=== PATIENT | male | born 1970 | race Caucasian/White ===

== ENCOUNTER 2019-02-28 09:05 | Emergency (ER) | payer BC, OTHER ==
[2019-02-28] MEDS ORDERED: Orphenadrine 100 MG Tab.ER PO STA (09:45)
--- NOTE | 2019-02-28 09:46 | EDM.PDOC ---
ED HPI GENERAL MEDICAL PROBLEM - General Chief Complaint: Respiratory Problem Stated Complaint: CHEST PAIN/SOB - COUGHING BLOOD X 2 DAYS Time Seen by Provider: 02/28/19 09:15 Source of Information: Reports: Patient, RN Notes Reviewed History Limitations: Reports: No Limitations - History of Present Illness INITIAL COMMENTS - FREE TEXT/NARRATIVE: The patient states that he has been experiencing pain felt in his lower sternum and between his scapulae since August 2018, but worse for the past 3 days. The pain is only present, in both locations, if he inhales. He has no pain if he either stops breathing or exhales. The patient is unable to describe the character of the pain, only that it is severe. The pain does not radiate anywhere else. The patient denies dyspnea, per se, but states that because of the pain, "I can't breathe - having a hard time breathing". The patient also reports "coughing up blood" 2 days ago. When asked to clarify, he describes some bloody phlegm. He reports having a sore throat today. He reports 3 weeks of night sweats, but no fever. He also reports having no energy for the past 3- 4 weeks. Back in August 2018, the patient states that he went to the walk-in clinic, but that no blood work or chest x-ray was performed. He was nevertheless diagnosed with pneumonia, and prescribed a Z-Jonh and inhalers, although no space chamber. He states that he has continued to use the inhaler, without improvement of his symptoms. When I asked the patient to mimic his inhaler technique, it was poor. The patient states that he took some Advil and beer to "take the edge off" last night. The patient states that he takes 5 tablets of ibuprofen (1000 mg) twice a day (2g/day), and that he has been doing so for the past 10 years. He denies taking any other medications. Here in the ED, the patient is found to be mildly tachycardic, with an oxygen saturation of 95% on room air. The patient does not have a PCP. Middle Chest Pain Score (Numeric/FACES): 4 - Related Data Allergies Allergy/AdvReac Type Severity Reaction Status Date / Time No Known Allergies Allergy Verified 02/28/19 09:14 Home Meds: Home Meds Albuterol Sulfate [Albuterol Sulfate Hfa] 1 inh INH DAILY PRN 02/28/19 [History] Orphenadrine [Norflex] 1 tab PO Q12H PRN #20 tab.er 02/28/19 [Rx] Past Medical History Musculoskeletal History: Reports: Fracture (Bilateral knees. Left elbow.) Endocrine/Metabolic History: Reports: Obesity/BMI 30+ - Past Surgical History HEENT Surgical History: Reports: Oral Surgery (wisdom teeth extraction) GI Surgical History: Reports: Hernia Repair/Other (periumbilical), Other (See Below) (Splenic laceration repair) Musculoskeletal Surgical History: Reports: Arthroscopic Knee (bilateral), ORIF ( left elbow) Social & Family History - Tobacco Use Smoking Status *Q: Never Smoker Second Hand Smoke Exposure: No - Caffeine Use Caffeine Use: Reports: Coffee, Soda - Alcohol Use Alcohol Use History: Yes Alcohol Use Frequency: Socially (to excess on occasion) - Recreational Drug Use Recreational Drug Use: No - Living Situation & Occupation Living situation: Reports: Single, Alone 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 ED EXAM, GENERAL - Physical Exam Exam: See Below Exam Limited By: No Limitations General Appearance: Alert, WD/WN, No Apparent Distress Eye Exam: Bilateral Eye: EOMI, Normal Inspection Ears: Normal External Exam, Normal Canal, Hearing Grossly Normal, Normal TMs Nose: Normal Inspection, Normal Mucosa, No Blood Throat/Mouth: Normal Inspection, Normal Lips, Normal Teeth, Normal Gums, Normal Voice, No Airway Compromise, Other (Mild posterior oropharyngeal erythema. No swelling.) Head: Atraumatic, Normocephalic Neck: Normal Inspection, Supple, Non-Tender, Full Range of Motion. No: Lymphadenopathy (L), Lymphadenopathy (R) Respiratory/Chest: No Respiratory Distress, Lungs Clear, Normal Breath Sounds, No Accessory Muscle Use, Other (Reproducible tenderness to palpation of the inferior sternum and medial aspect of the left pectoralis muscle. This same pain is reproduced by having the patient pressed his hands in front of his chest , or by crossing his left arm across his chest. The pain between the scapulae is also reproducible with direct palpation over the lower thoracic spine.). No : Decreased Breath Sounds, Crackles, Rhonchi, Wheezing, Prolonged Expiration Cardiovascular: Normal Peripheral Pulses, Regular Rate, Rhythm, No Gallop, No JVD, No Murmur, No Rub Peripheral Pulses: 4+: Radial (L), Radial (R) GI/Abdominal: Normal Bowel Sounds, Soft, Non-Tender, No Organomegaly, No Distention, No Abnormal Bruit, No Mass, Other (Obese) (Male) Exam: Deferred Rectal (Males) Exam: Deferred Back Exam: Normal Inspection, Full Range of Motion, NT Extremities: Normal Inspection, Normal Range of Motion, Normal Capillary Refill Neurological: Alert, Oriented, Normal Cognition, No Motor/Sensory Deficits Psychiatric: Normal Affect Skin Exam: Warm, Dry, Intact, Normal Color, No Rash EKG INTERPRETATION EKG Date: 02/28/19 Time: 09:11 Rhythm: Other (Sinus tachycardia) Rate (Beats/Min): 101 New Site: Normal P-Wave: Present QRS: Normal ST-T: Normal QT: Normal Comparison: NA - No Prior EKG Course - Vital Signs Last Recorded V/S: Last Vital Signs Temp 36.9 C 02/28/19 09:11 Pulse 102 H 02/28/19 09:11 Resp 18 02/28/19 09:11 BP 132/82 02/28/19 09:11 Pulse Ox 95 02/28/19 09:11 - Orders/Labs/Meds Labs: Laboratory Tests 02/28/19 02/28/19 02/28/19 Range/Units 10:06 10:06 10:06 WBC 9.44 H (4.23-9.07) K/mm3 RBC 4.94 (4.63-6.08) M/mm3 Hgb 14.7 (13.7-17.5) gm/L Hct 43.2 (40.1-51.0) % MCV 87.4 (79.0-92.2) fl MCH 29.8 (25.7-32.2) pg MCHC 34.0 (32.2-35.5) g/dl RDW Std Deviation 41.8 (35.1-43.9) fL Plt Count 289 (163-337) K/mm3 MPV 8.9 L (9.4-12.3) fl Neutrophils % (Manual) 57 (40-60) % Band Neutrophils % 0 (0-10) % Lymphocytes % (Manual) 32 (20-40) % Atypical Lymphs % 0 % Monocytes % (Manual) 8 (2-10) % Eosinophils % (Manual) 2 (0.8-7.0) % Basophils % (Manual) 1 (0.2-1.2) Platelet Estimate Adequate RBC Morph Comment Normal APTT 28 (24-31) SECONDS D-Dimer, Quantitative 0.34 (0.19-0.50) mg/L Sodium 143 (136-145) mEq/L Potassium 3.8 (3.5-5.1) mEq/L Chloride 108 H (98-107) mEq/L Carbon Dioxide 23 (21-32) mEq/L Anion Gap 15.8 H (5-15) BUN 16 (7-18) mg/dL Creatinine 1.2 (0.7-1.3) mg/dL Est Cr Clr Drug Dosing 81.05 mL/min Estimated GFR (MDRD) > 60 (>60) mL/min BUN/Creatinine Ratio 13.3 L (14-18) Glucose 127 H (74-106) mg/dL Calcium 8.1 L (8.5-10.1) mg/dL Total Bilirubin 0.3 (0.2-1.0) mg/dL AST 31 (15-37) U/L ALT 53 (16-63) U/L Alkaline Phosphatase 60 (46-116) U/L Troponin I < 0.017 (0.00-0.056) ng/mL C-Reactive Protein (<1.0) mg/dL Total Protein 7.4 (6.4-8.2) g/dl Albumin 3.4 (3.4-5.0) g/dl Globulin 4.0 gm/dL Albumin/Globulin Ratio 0.9 L (1-2) 02/28/19 Range/Units 10:06 WBC (4.23-9.07) K/mm3 RBC (4.63-6.08) M/mm3 Hgb (13.7-17.5) gm/L Hct (40.1-51.0) % MCV (79.0-92.2) fl MCH (25.7-32.2) pg MCHC (32.2-35.5) g/dl RDW Std Deviation (35.1-43.9) fL Plt Count (163-337) K/mm3 MPV (9.4-12.3) fl Neutrophils % (Manual) (40-60) % Band Neutrophils % (0-10) % Lymphocytes % (Manual) (20-40) % Atypical Lymphs % % Monocytes % (Manual) (2-10) % Eosinophils % (Manual) (0.8-7.0) % Basophils % (Manual) (0.2-1.2) Platelet Estimate RBC Morph Comment APTT (24-31) SECONDS D-Dimer, Quantitative (0.19-0.50) mg/L Sodium (136-145) mEq/L Potassium (3.5-5.1) mEq/L Chloride (98-107) mEq/L Carbon Dioxide (21-32) mEq/L Anion Gap (5-15) BUN (7-18) mg/dL Creatinine (0.7-1.3) mg/dL Est Cr Clr Drug Dosing mL/min Estimated GFR (MDRD) (>60) mL/min BUN/Creatinine Ratio (14-18) Glucose (74-106) mg/dL Calcium (8.5-10.1) mg/dL Total Bilirubin (0.2-1.0) mg/dL AST (15-37) U/L ALT (16-63) U/L Alkaline Phosphatase (46-116) U/L Troponin I (0.00-0.056) ng/mL C-Reactive Protein 5.7 H* (<1.0) mg/dL Total Protein (6.4-8.2) g/dl Albumin (3.4-5.0) g/dl Globulin gm/dL Albumin/Globulin Ratio (1-2) Meds: Medications Discontinued Medications Generic Name Dose Route Start Last Admin Trade Name Freq PRN Reason Stop Dose Admin Orphenadrine Citrate 100 mg 02/28/19 09:45 02/28/19 09:59 Norflex PO 02/28/19 09:46 100 mg ONETIME STA Administration - Re-Assessments/Exams Free Text/Narrative Re-Assessment/Exam: 02/28/19 09:44 The patient's chest pain and mid-back pain are musculoskeletal in etiology, as they are reproducible with palpation and flexion of the muscles. I have ordered Norflex. In the meantime, however, the patient may also have an underlying pulmonary issue, therefore I have ordered blood work and a chest x-ray. In addition, because of the patient's sore throat and bloody phlegm, I have ordered a rapid strep test. 02/28/19 10:12 2-view chest radiograph reviewed. The cardiac silhouette is within normal limits. No pulmonary vascular congestion. No pleural effusions. No focal infiltrate. No pneumothorax. Several sub-centimeter nodules noted bilaterally. Formal read per the Radiologist pending. Due to the pulmonary nodules, I will add a CRP. 02/28/19 11:27 Test results discussed with the patient. His CBC is remarkable for WBC count slightly elevated at 9.44, but with 0% bandemia. The remainder of his CBC is unremarkable. His CMP is remarkable for blood glucose modestly elevated at 127. The remainder of his CMP is unremarkable. His troponin is undetectably low. His D-dimer is within normal limits. His CRP is modestly elevated at 5.7. His rapid strep returned negative. As above, the patient's chest and back pain appears to be musculoskeletal in etiology, and for that, he has been started on Norflex. I will prescribe additional, and write a note for him to be off work for a couple of days. The patient had stated that he takes 5 tablets (1000 mg) of ibuprofen twice a day, for the past 10 years. Such high doses and prolonged use of ibuprofen have been shown to increase the risk for the development of coronary artery disease, therefore, despite his aches and pains, I will have to recommend that he discontinue its use. He may take Tylenol at a reasonable dose. In most patients who report coughing up blood, the blood comes from friable mucous membranes in the posterior oropharynx, which may be the cause in this case, however, I am concerned by his abnormal chest x-ray, his generalized aches and pains, night sweats, and fatigue. It is possible that the patient may have vasculitis, such as Brittney's or sarcoidosis. Further workup is required, in my opinion. I will therefore refer him to the clinic, where a dedicated CT scan of the chest with IV contrast, along with blood work, can be ordered. Departure - Departure Time of Disposition: 11:31 Disposition: Home, Self-Care 01 Condition: Good Clinical Impression: Musculoskeletal chest pain, Musculoskeletal back pain, Cough - Discharge Information *PRESCRIPTION DRUG MONITORING PROGRAM REVIEWED*: Not Applicable *COPY OF PRESCRIPTION DRUG MONITORING REPORT IN PATIENT CARMEN: Not Applicable Prescriptions: Orphenadrine [Norflex] 1 tab PO Q12H PRN #20 tab.er PRN Reason: Muscle Spasm Instructions: Cough, Adult, [id number], Nonspecific Chest Pain, [id number] Referrals: Seng Mota MD [Physician] - Forms: ED Department Discharge, ED Return to Work/School Form Additional Instructions: You were seen in the emergency room for chest pain and back pain with breathing , coughing up some bloody phlegm, a sore throat, night sweats, and fatigue. Workup in the ER included blood work, a rapid strep test, a chest x-ray, and an ECG. Your chest x-ray showed several small pulmonary nodules. The remainder of your workup was, for the most part, unremarkable. You do not have pneumonia. You do not have a blood clot in your lungs. You have not suffered a heart attack. He did not have strep throat. The cause of your chest and back pain is due to a muscle spasm. You have been started on the muscle relaxant Norflex. A prescription for Norflex has been sent to the [facility], located in the [facility] [facility]. Take one tablet of Norflex every 12 hours, starting this evening, 02/28/2019, as prescribed. As discussed, taking large doses of NSAIDs, such as ibuprofen, can be bad for your heart. We recommend that you stop taking this medicine immediately. You may take [id number] Tylenol, up to 1 g (two 500 mg tablets) every 6 hours, as needed for discomfort. We recommend that you follow-up with Dr. Seng Fields in the clinic at the next available appointment, for further evaluation of your chest, that will likely include a CT scan of your chest with IV contrast, along with additional blood tests, in order to make sure that you do not have conditions such as vasculitis or sarcoidosis. A note for work has been provided to you. If any other problems, please do not hesitate to return to the ER.
--- NOTE | 2019-02-28 12:53 | CR ---
Chest: Two views of the chest were obtained. Comparison: No prior chest x-ray. Heart size is normal. Mild tortuosity of the thoracic aorta is seen. No acute parenchymal change is appreciated within the lungs. Minimal scoliosis is noted within the spine. Impression: 1. Nothing acute is appreciated on two-view chest x-ray. Diagnostic code #2
== END 2019-02-28 11:54 | disposition home or self-care (01) ==
LOC: JD.ED 09:05
DX: R07.89 Other chest pain (principal); M54.9 Dorsalgia, unspecified; R05 Cough; Z79.899 Other long term (current) drug therapy
CPT/HCPCS: 36415; 71046; 80053; 84484; 85007; 85027; 85379; 85730; 86140; 87077; 87081; 87430; 93005; 99285; A9270; 93010; 99284

== ENCOUNTER 2021-09-26 17:16 | Emergency (ER) | payer BC ==
--- NOTE | 2021-09-26 18:24 | EDM.PDOC ---
<AbhinavNicole - Last Filed: 09/26/21 19:06> ED HPI GENERAL MEDICAL PROBLEM - General Chief Complaint: Abdominal Pain Stated Complaint: ABDOMINAL PAIN Time Seen by Provider: 09/26/21 17:40 Source of Information: Reports: Patient, Significant Other (- Karen) History Limitations: Reports: No Limitations - History of Present Illness INITIAL COMMENTS - FREE TEXT/NARRATIVE: Mr. Red Enriquez (Tim) is a pleasant 51 [id number] who presents for evaluation of abdominal pain in the epigastric area that started 3 days ago. He rates the pain a 6/10, describing it as "constant" and "severe pressure. He tried a soft foods diet, but did not notice any relief. He was able to eat a small amount of yogurt this afternoon and sip on a Poweraid. Nothing, including position changes, makes it worse. He had diarrhea 4 days ago, that lasted 3 day that resolved spontaneously. He had a small bowel movement this morning. He is passing a little gas. Associated symptoms include extreme tiredness x3 days, chills x3 days, sweats xonce, one episode of emesis this morning. He denies headache, cough, fever, chest pain, sob. He had a hernia repair in 2008. Upper Mid-Anterior Abdomen Pain Score (Numeric/FACES): 6 - Related Data Allergies Allergy/AdvReac Type Severity Reaction Status Date / Time No Known Allergies Allergy Verified 09/26/21 17:38 Home Meds: Home Meds Albuterol Sulfate [Albuterol Sulfate Hfa] 1 inh INH DAILY PRN 02/28/19 [History] Rosuvastatin [Crestor] 10 mg PO DAILY 09/26/21 [History] hydroCHLOROthiazide [Hydrochlorothiazide] 25 mg PO DAILY 09/26/21 [History] lisinopriL [Lisinopril] 10 mg PO DAILY 09/26/21 [History] Past Medical History Cardiovascular History: Reports: High Cholesterol, Hypertension Respiratory History: Reports: Asthma, Pneumonia, Recurrent Gastrointestinal History: Reports: GERD Musculoskeletal History: Reports: Fracture Endocrine/Metabolic History: Reports: Obesity/BMI 30+ - Infectious Disease History Infectious Disease History: Reports: Chicken Pox - Past Surgical History HEENT Surgical History: Reports: Oral Surgery GI Surgical History: Reports: Hernia Repair/Other, Other (See Below) Other GI Surgeries/Procedures: splenic laceration repair Musculoskeletal Surgical History: Reports: Arthroscopic Knee, ORIF Other Musculoskeletal Surgeries/Procedures:: elbow surgery, knee surgery Social & Family History - Tobacco Use Tobacco Use Status *Q: Never Tobacco User Second Hand Smoke Exposure: No - Caffeine Use Caffeine Use: Reports: Coffee - Recreational Drug Use Recreational Drug Use: No - Living Situation & Occupation Living situation: Reports: Single, Alone 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 Denies: Fever HEENT: Reports: No Symptoms Respiratory: Reports: No Symptoms Cardiovascular: Reports: No Symptoms. Denies: Chest Pain, Lightheadedness, Palpitations Endocrine: Reports: No Symptoms GI/Abdominal: Reports: Abdominal Pain (epigastri region), Diarrhea, Distension, Flatus, Vomiting. Denies: Black Stool, Bloody Stool : Reports: No Symptoms Musculoskeletal: Reports: No Symptoms Skin: Reports: No Symptoms Neurological: Reports: No Symptoms Psychiatric: Reports: No Symptoms Hematologic/Lymphatic: Reports: No Symptoms ED EXAM, GI/ABD - Physical Exam Exam: See Below Exam Limited By: No Limitations General Appearance: Alert, Mild Distress Throat/Mouth: Normal Inspection Head: Atraumatic, Normocephalic Neck: Normal Inspection Respiratory/Chest: No Respiratory Distress, Lungs Clear, Normal Breath Sounds Cardiovascular: Regular Rate, Rhythm, JVD (slight) GI/Abdominal Exam: Distended, Tender (throughout.), Abnormal Bowel Sounds (Hypoactive), Other (2" x 2" area of erythema noted in the epigastric region. Pt reports he scratches.) Neurological: Alert, Oriented, Normal Cognition Psychiatric: Normal Affect, Normal Mood Course - Re-Assessments/Exams Free Text/Narrative Re-Assessment/Exam: 09/26/21 18:00 Orders for labs, including CRP, CMP, CBC, Lipase placed. Ordered Abdominal CT w/contrast. 09/26/21 19:07 Patient mentioned that while he was experiencing diarrhea he noticed "fat" in his stool. Departure - Departure Disposition: Home, Self-Care 01 Clinical Impression: Pancreatitis Qualifiers: Chronicity: acute Pancreatitis type: other Acute pancreatitis complication: uninfected necrosis Qualified Code(s): K85.81 - Other acute pancreatitis with uninfected necrosis - Discharge Information Instructions: Acute Pancreatitis Referrals: Allison Barillas NP [Primary Care Provider] - Forms: ED Department Discharge, ED Return to Work/School Form Additional Instructions: Return to the emergency room with any questions problems or worsening symptoms. Return to the emergency room immediately if you are getting worse. Return in 24 to 48 hours if not improving. Follow-up with your regular healthcare provider tomorrow. Clear liquid diets as we discussed water Gatorade broth and that is about it. From the machine in the waiting room and given you 2 prescriptions one of them is for hydrocodone this is a pain medication take 1 or 2 every 6 hours as needed for pain. I have given you 20 of these. The second medication is Zofran this is a nausea medication take 1 every 6 hours as needed. I have given you 10 of these. Sepsis Event Note (ED) - Evaluation Sepsis Screening Result: No Definite Risk <Rajat Burks - Last Filed: 09/26/21 21:42> Course - Re-Assessments/Exams Free Text/Narrative Re-Assessment/Exam: 09/26/21 21:42 Assumed care at change of shift I did give the patient a little bit more Dilaudid quarter milligram this seems to be helping. His CT did come back which shows some pancreatitis he also has severe diffuse fatty liver and a nonobstructing left renal stone no other abnormalities really appreciated contrast-enhanced abdominal CT. Case discussed with Dr. Araiza our hospitalist, he would be willing to assume care. However, the patient really would like to go home this is reasonable as well. The patient will follow a clear liquid diet at home I will send him home with a few pain pills and some nausea medication. Discussed other findings on the CT such as the fatty liver and the importance of weight loss with this. The patient is not use alcohol on a regular basis and he should avoid alcohol. Departure - Departure Time of Disposition: 21:49 <Curt Thurman - Last Filed: 09/27/21 07:03> ED ROS GENERAL - Review of Systems Review Of Systems: See Below Constitutional: Reports: No Symptoms HEENT: Reports: No Symptoms Respiratory: Reports: No Symptoms Cardiovascular: Reports: No Symptoms Endocrine: Reports: No Symptoms GI/Abdominal: Reports: Abdominal Pain, Nausea : Reports: No Symptoms Musculoskeletal: Reports: No Symptoms ED EXAM, GI/ABD - Physical Exam Exam: See Below Exam Limited By: No Limitations General Appearance: Alert, No Apparent Distress Ears: Normal External Exam Nose: Normal Inspection Head: Atraumatic, Normocephalic Neck: Normal Inspection Respiratory/Chest: No Respiratory Distress, Lungs Clear, Normal Breath Sounds Cardiovascular: Regular Rate, Rhythm, No Edema, No Murmur GI/Abdominal Exam: Soft, Distended, Tender #1 Interpretation EKG Date: 09/26/21 Time: 18:05 Rhythm: Other (sinus tachycardia) Rate (Beats/Min): 112 [place]: Normal P-Wave: Present QRS: Normal ST-T: Normal QT: Normal Course - Vital Signs Last Recorded V/S: Last Vital Signs Temp 98.1 F 09/26/21 17:35 Pulse 110 H 09/26/21 19:00 Resp 18 09/26/21 19:00 BP 141/95 H 09/26/21 19:00 Pulse Ox 98 09/26/21 19:00 - Orders/Labs/Meds Orders: Active Orders 24 hr Category Date Time Status Abdomen Pelvis w Cont [CT] Stat Exams 09/26/21 18:07 Taken Peripheral IV Insertion Adult [OM.PC] Routine Oth 09/26/21 18:28 Ordered EKG 12 Lead [EK] Stat Ther 09/26/21 18:35 Stop Req Labs: Laboratory Tests 09/26/21 09/26/21 Range/Units 18:24 18:24 WBC 16.01 H (4.23-9.07) K/mm3 RBC 4.45 L (4.63-6.08) M/mm3 Hgb 13.6 L (13.7-17.5) gm/dl Hct 39.6 L (40.1-51.0) % MCV 89.0 (79.0-92.2) fl MCH 30.6 (25.7-32.2) pg MCHC 34.3 (32.2-35.5) g/dl RDW Std Deviation 41.1 (35.1-43.9) fL Plt Count 221 (163-337) K/mm3 MPV 9.0 L (9.4-12.3) fl Neut % (Auto) 81.9 H (34.0-67.9) % Lymph % (Auto) 8.8 L (21.8-53.1) % Hunt % (Auto) 8.2 (5.3-12.2) % Eos % (Auto) 0.6 L (0.8-7.0) Baso % (Auto) 0.2 (0.1-1.2) % Neut # (Auto) 13.10 H (1.78-5.38) K/mm3 Lymph # (Auto) 1.41 (1.32-3.57) K/mm3 Hunt # (Auto) 1.32 H (0.30-0.82) K/mm3 Eos # (Auto) 0.10 (0.04-0.54) K/mm3 Baso # (Auto) 0.03 (0.01-0.08) K/mm3 Sodium 136 (136-145) mEq/L Potassium 3.6 (3.5-5.1) mEq/L Chloride 99 (98-107) mEq/L Carbon Dioxide 25 (21-32) mEq/L Anion Gap 15.6 H (5-15) BUN 12 (7-18) mg/dL Creatinine 1.0 (0.7-1.3) mg/dL Est Cr Clr Drug Dosing 94.13 mL/min Estimated GFR (MDRD) > 60 (>60) mL/min BUN/Creatinine Ratio 12.0 L (14-18) Glucose 118 H (70-99) mg/dL Calcium 8.5 (8.5-10.1) mg/dL Total Bilirubin 0.9 (0.2-1.0) mg/dL AST 21 (15-37) U/L ALT 51 (16-63) U/L Alkaline Phosphatase 62 (46-116) U/L C-Reactive Protein 21.5 H* (<1.0) mg/dL Total Protein 7.6 (6.4-8.2) g/dl Albumin 3.2 L (3.4-5.0) g/dl Globulin 4.4 gm/dL Albumin/Globulin Ratio 0.7 L (1-2) Lipase 384 (73-393) U/L Meds: Medications Discontinued Medications Generic Name Dose Route Start Last Admin Trade Name Freq PRN Reason Stop Dose Admin Hydromorphone HCl 0.5 mg 09/26/21 18:29 09/26/21 18:47 Hydromorphone 0.5 Mg/0.5 Ml Syringe IVPUSH 09/26/21 18:30 0.5 mg ONETIME ONE Administration Hydromorphone HCl 0.25 mg 09/26/21 21:16 09/26/21 21:24 Hydromorphone 0.5 Mg/0.5 Ml Syringe IVPUSH 09/26/21 21:17 0.25 mg ONETIME ONE Administration Sodium Chloride 1,000 mls @ 1,000 mls/hr 09/26/21 18:28 09/26/21 18:48 Normal Saline IV 09/26/21 19:27 1,000 mls/hr ONETIME ONE Administration Iopamidol 100 ml 09/26/21 20:19 09/26/21 20:24 Iopamidol 612 Mg/Ml 100 Ml Bottle IVPUSH 09/26/21 20:20 100 ml ONETIME ONE Administration Ondansetron HCl 4 mg 09/26/21 18:28 09/26/21 18:46 Ondansetron 4 Mg/2 Ml Sdv IVPUSH 09/26/21 18:29 4 mg ONETIME ONE Administration Sodium Chloride 10 ml 09/26/21 18:28 09/26/21 19:12 Sodium Chloride 0.9% 10 Ml Syringe FLUSH 10 ml ASDIRECTED PRN Administration Keep Vein Open Sodium Chloride 10 ml 09/26/21 20:19 09/26/21 20:24 Sodium Chloride 0.9% 10 Ml Syringe FLUSH 09/26/21 20:20 10 ml ONETIME ONE Administration - Re-Assessments/Exams Free Text/Narrative Re-Assessment/Exam: 09/26/21 19:05 I examined the patient myself and I agree with Nicole's assessment and plan. His EKG shows a NSR with no acute changes. His WBC is elevated at 16.1. - My Orders Last 24 Hours: My Active Orders 09/26/21 18:28 Peripheral IV Insertion Adult [OM.PC] Routine - Assessment/Plan Last 24 Hours: My Active Orders 09/26/21 18:28 Peripheral IV Insertion Adult [OM.PC] Routine
[2021-09-26] MEDS ORDERED: Ondansetron 4 MG/2 ML SDV IVPUSH ONE (18:28)
[2021-09-26] MEDS ORDERED: Sodium Chloride 0.9% 10 ML Syringe FLUSH PRN (18:28)
[2021-09-26] MEDS ORDERED: Sodium Chloride 0.9% 1,000 ML IV ONE (18:28)
[2021-09-26] MEDS ORDERED: HYDROmorphone 0.5 MG/0.5 ML Syringe IVPUSH ONE ×2 (18:29→21:16)
[2021-09-26] MEDS ORDERED: Sodium Chloride 0.9% 10 ML Syringe FLUSH ONE (20:19)
[2021-09-26] MEDS ORDERED: Iopamidol 612 MG/ML 100 ML Bottle IVPUSH ONE (20:19)
--- NOTE | 2021-09-27 10:08 | CT ---
EXAM: CT ABDOMEN PELVIS WITH CONTRAST LOCATION: [facility] [employer] DATE/TIME: 09/26/2021 7:26 PM INDICATION: Epigastric pain COMPARISON: None. TECHNIQUE: CT scan of the abdomen and pelvis was performed following injection of IV contrast. Multiplanar reformats were obtained. Dose reduction techniques were used. CONTRAST: [id number] 100ml FINDINGS: LOWER CHEST: Coronary atherosclerosis. HEPATOBILIARY: Severe diffuse hepatic steatosis. PANCREAS: No mass. Central mesenteric edema adjacent the inferior uncinate process and transverse duodenum suggests pancreatitis SPLEEN: Normal. ADRENAL GLANDS: Normal. KIDNEYS/BLADDER: Left inferior renal 2 and 3 mm nonobstructive stones. No ureteral stone or hydronephrosis. BOWEL: Normal with no obstruction or acute inflammatory change. Nothing for appendicitis. LYMPH NODES: Normal. VASCULATURE: Unremarkable. PELVIC ORGANS: Normal. MUSCULOSKELETAL: Fat in both inguinal canals could represent inguinal hernia, particularly on the right, or lipomas of the spermatic cord. IMPRESSION: 1. Peripancreatic edema suggests pancreatitis. 2. Severe diffuse hepatic steatosis. 3. Nonobstructive left renal stones. SIGNED BY: Jose Blair MD 09/26/2021 9:41 PM KATH[facility]
== END 2021-09-26 22:06 | disposition home or self-care (01) ==
LOC: JD.ED 17:16
DX: K85.81 Other acute pancreatitis with uninfected necrosis (principal); E78.00 Pure hypercholesterolemia, unspecified; I10 Essential (primary) hypertension; J45.909 Unspecified asthma, uncomplicated; R00.0 Tachycardia, unspecified; E66.9 Obesity, unspecified; Z68.41 Body mass index [BMI] 40.0-44.9, adult; Z79.899 Other long term (current) drug therapy
CPT/HCPCS: 36415; 74177; 80053; 83690; 85025; 86140; 93005; 96374; 96375; 96376; 99284; J1170; J2405; J7030; Q9967